=== PATIENT | female | born 1985 | race Caucasian/White ===

== ENCOUNTER 2017-03-16 03:45 | Emergency (ER) | payer OTHER ==
--- NOTE | 2017-03-16 05:27 | ED ORDER SUMMARY ---
..... Patient: CASSI KERN OrderSheet [facility] VisitID: [id number] [place] [address] 31y, F Registration Date/Time: 03/16/2017 ORDER SHEET Weight: 72.5 kg (stated) Allergies: Oranges, Roxicet GENERAL ORDERS: MEDICATION ORDERS: Diazepam PO 10 mg (HIGH ALERT MEDICATION, NOW) (04:20 03/16/2017 Pedro Pablo Kim) (4:34 Pablo R.N.) Motrin PO 800 mg (NOW) (04:20 03/16/2017 Pedro Pablo Kim) (4:35 Pablo De Souza.N.) IV FLUIDS: ORDER SHEET NOTES: [Electronically signed by James Ford Dr. (05:29 03/16/2017)] [Electronically signed by Hiro Stout R.N. (06:59 03/16/2017)] [Electronically locked/signed by Hiro Stout R.N. (06:59 03/16/2017)]
--- NOTE | 2017-03-16 05:27 | ED CLINICAL REPORT ---
Clinical Report - Physicians/Mid Levels [facility] [address] [place] [address] 03/16/2017 3:47 Patient: CASSI KERN Time Seen: 04:06; initial patient contact. Arrived- By private vehicle. Historian- patient. HISTORY OF PRESENT ILLNESS Chief Complaint: HEADACHE. Is still present. This started about 2 days ago. It was gradual in onset. Onset during light activity. It is described as similar to previous headaches and "pain". Located in the frontal and occipital region and has had neck pain. Not located in the facial region. At its maximum, severity described as moderate. When seen in the E.D., severity described as moderate. The patient has had photophobia. No preceding symptoms, blurred vision, associated nausea or vomiting. Similar symptoms previously: Many times. Recent medical care: Not recently seen/assessed. REVIEW OF SYSTEMS No sinus pressure or head injury. All systems otherwise negative, except as recorded above. PAST HISTORY Tension H/A's Migraine H/A's. Medications: Methocarbamol Oral 750 mg, as needed. Allergies: Oranges. Roxicet. SOCIAL HISTORY Never smoker. Occasional alcohol use. No drug use. ADDITIONAL NOTES The nursing notes have been reviewed. PHYSICAL EXAM Vital Signs: 03/16/2017 03:54 BP: 148/95. HR: 70. RR: 16. O2 saturation: 99%. Temp: 97.1 F. Pain level now: 08/28. Have been reviewed. Hypertensive. Heart rate normal. Respiratory rate normal. Temperature normal. Oxygen saturation normal. Appearance: Alert. No acute distress. Eyes: Photophobia present. Pupils equal, round and reactive to light. Eyes normal inspection. ENT: Pharynx normal. Neck: Moderate muscle spasm of the right and left posterior neck. Neck supple. Mild soft tissue tenderness in the right upper neck area and left upper neck area. No meningeal signs. No vertebral tenderness. No vertebral step-off. CVS: Normal heart rate and rhythm. Heart sounds normal. Respiratory: No respiratory distress. Breath sounds normal. Skin: Skin warm and dry. Normal skin color. No rash. Extremities: No lower extremity edema. Neuro: Oriented X 3. Alert. Mood/affect normal. Speech normal. PROGRESS AND PROCEDURES Course of Care: Motrin 800 mg PO given. Diazepam 10 mg PO given. Physical exam findings are improved. Symptoms much better. Disposition: Discharged home in good and improved condition. Condition: good. CLINICAL IMPRESSION Episodic tension-type headache resistant to treatment. INSTRUCTIONS Do not work today. Your Current Medications: CONTINUE TAKING THE FOLLOWING MEDICATIONS: Methocarbamol Oral : 750 mg, prn. Prescription Medications: Diclofenac 50 mg tablets: take 1 tablet orally every 8 hours as needed for pain or stiffness. Dispense thirty (30). No refill. Follow-up: Follow up with your doctor in about three days. Call for an appointment. Screening today revealed the patient's blood pressure to be in the hypertensive range. The patient should follow up with a primary care provider for blood pressure management. (Electronically signed by James Ford Dr. 03/16/2017 5:29)
--- NOTE | 2017-03-16 05:27 | ED NURSING NOTES ---
Clinical Report - Nurses [facility] [address] [place] [address] 03/16/2017 3:47 Patient: CASSI KERN TRIAGE Triage time 03:54. Acuity: LEVEL 4. Chief Complaint: MIGRAINE HEADACHE. 04:02. --04:02 Ana Rey R.N. 03:54 03/16/17. BP: 148/95 taken on the left arm, via an automated monitor, while lying. HR: 70 (regular, normal rate and strong). RR: 16 (regular, labored and normal). O2 saturation: 99% on room air. Temp: 97.1 F (oral). Pain level now: 08/28. --04:02 Ana Rey R.N. Weight: 72.5 kg stated. Height/Length: 64 inches Per Patient. BMI: 27.5. --03:56 Ana Rey R.N. Medications Methocarbamol Oral 750 mg, as needed. --03:56 Ana Rey R.N. Allergies Oranges. Roxicet. --03:56 Ana Rey R.N. History Arrived by private vehicle. Historian: patient. Accompanied by friend. Primary physician (Dr Disla). This started 11 hours ago. SOCIAL HX: Never smoker. Occasional alcohol use. No drug use. FALL RISK ASSESSMENT: Fall risk assessment completed. No fall risk identified. NUTRITIONAL RISK ASSESSMENT: The nutritional risk assessment revealed no deficiencies. FUNCTIONAL ASSESSMENT: Functional assessment: no impairments noted. LEARNING NEEDS ASSESSMENT: The learning needs assessment revealed no barriers. SKIN INTEGRITY ASSESSMENT: Skin integrity risk assessment completed. No skin integrity risk identified. --04:02 Ana Rey R.N. Interventions ID band on patient. --04:02 Aan Rey R.N. PHYSICAL ASSESSMENT 04:04. Ambulatory to room. GENERAL / NEURO / PSYCH: Alert. Oriented X 4. Appears in no acute distress. Appears in pain. Speech within normal limits. HEENT: No facial asymmetry noted. Pupils equal, round and reactive to light. RESPIRATORY: Respirations not labored. Breath sounds within normal limits. CVS: Capillary refill less than 2 seconds. GI / : Abdomen soft and nontender. SKIN: Skin is warm. --04:04 Ana Rey R.N. NURSING PROGRESS NOTES 04:03. Patient ID band checked for patient name and birthdate: patient confirmed. Clean catch urine collected with return of yellow-colored clear urine; odor is normal. Specimen labeled in the presence of the patient. Two patient identifiers checked. Call light placed in reach. Side rails up x 1. Bed placed in lowest position. Brakes of bed on. --04:03 Ana Rey R.N. 04:30 03/16/2017 Diazepam (Diazepam) PO Tablets 10 mg given. Allergies verified, confirmed 5 rights and sedative warning given. --04:34 Hiro Stout R.N. 04:30 03/16/2017 Motrin PO Tablets 600 mg given. Allergies verified and confirmed 5 rights. --04:35 Hiro Stout R.N. DISPOSITION / DISCHARGE Departure time: 0545. --06:52 Hiro Stout R.N. 05:35 03/16/17. BP: 132/87. HR: 86. RR: 16. O2 saturation: 99% on room air. Temp: 98.2 F (oral). Pain level now: 0/10. --06:57 Hiro Stout R.N. 05:45. Condition at departure: improved. No learning barriers present. Discharge instructions provided and reviewed with the patient. Reviewed medication(s) dosing information (prescription given to pt). Reviewed referral to family practice. Patient verbalized understanding. Written instructions provided in [place]. The patient was discharged by the physician. She was discharged home and accompanied by tape deck installer. She left the Emergency Department ambulatory and via private vehicle. Picker Feeder driving. --06:59 Hiro Stout R.N. Locked/Released at 03/16/2017 6:59 by Hiro Stout R.N.
--- NOTE | 2017-03-16 05:27 | ED NURSING NOTES ---
Clinical Report - Nurses [facility] [address] [place] [address] 03/16/2017 3:47 Patient: CASSI KERN TRIAGE Triage time 03:54. Acuity: LEVEL 4. Chief Complaint: MIGRAINE HEADACHE. 04:02. --04:02 Ana Rey R.N. 03:54 03/16/17. BP: 148/95 taken on the left arm, via an automated monitor, while lying. HR: 70 (regular, normal rate and strong). RR: 16 (regular, labored and normal). O2 saturation: 99% on room air. Temp: 97.1 F (oral). Pain level now: 08/28. --04:02 Ana Rey R.N. Weight: 72.5 kg stated. Height/Length: 64 inches Per Patient. BMI: 27.5. --03:56 Ana Rey R.N. Medications Methocarbamol Oral 750 mg, as needed. --03:56 Ana Rey R.N. Allergies Oranges. Roxicet. --03:56 Ana Rey R.N. History Arrived by private vehicle. Historian: patient. Accompanied by friend. Primary physician (Dr Disla). This started 11 hours ago. SOCIAL HX: Never smoker. Occasional alcohol use. No drug use. FALL RISK ASSESSMENT: Fall risk assessment completed. No fall risk identified. NUTRITIONAL RISK ASSESSMENT: The nutritional risk assessment revealed no deficiencies. FUNCTIONAL ASSESSMENT: Functional assessment: no impairments noted. LEARNING NEEDS ASSESSMENT: The learning needs assessment revealed no barriers. SKIN INTEGRITY ASSESSMENT: Skin integrity risk assessment completed. No skin integrity risk identified. --04:02 Ana Rey R.N. Interventions ID band on patient. --04:02 Ana Rey R.N. PHYSICAL ASSESSMENT 04:04. Ambulatory to room. GENERAL / NEURO / PSYCH: Alert. Oriented X 4. Appears in no acute distress. Appears in pain. Speech within normal limits. HEENT: No facial asymmetry noted. Pupils equal, round and reactive to light. RESPIRATORY: Respirations not labored. Breath sounds within normal limits. CVS: Capillary refill less than 2 seconds. GI / : Abdomen soft and nontender. SKIN: Skin is warm. --04:04 Ana Rey R.N. NURSING PROGRESS NOTES 04:03. Patient ID band checked for patient name and birthdate: patient confirmed. Clean catch urine collected with return of yellow-colored clear urine; odor is normal. Specimen labeled in the presence of the patient. Two patient identifiers checked. Call light placed in reach. Side rails up x 1. Bed placed in lowest position. Brakes of bed on. --04:03 Ana Rey R.N. 04:30 03/16/2017 Diazepam (Diazepam) PO Tablets 10 mg given. Allergies verified, confirmed 5 rights and sedative warning given. --04:34 Hiro Stout R.N. 04:30 03/16/2017 Motrin PO Tablets 600 mg given. Allergies verified and confirmed 5 rights. --04:35 Hiro Stout R.N. DISPOSITION / DISCHARGE Departure time: 0545. --06:52 Hiro Stout R.N. 05:35 03/16/17. BP: 132/87. HR: 86. RR: 16. O2 saturation: 99% on room air. Temp: 98.2 F (oral). Pain level now: 0/10. --06:57 Hiro Stout R.N. 05:45. Condition at departure: improved. No learning barriers present. Discharge instructions provided and reviewed with the patient. Reviewed medication(s) dosing information (prescription given to pt). Reviewed referral to family practice. Patient verbalized understanding. Written instructions provided in [place]. The patient was discharged by the physician. She was discharged home and accompanied by wooden tank erector. She left the Emergency Department ambulatory and via private vehicle. Garnett Machine Operator driving. --06:59 Hiro Stout R.N. Locked/Released at 03/16/2017 6:59 by Hiro Stout R.N.
--- NOTE | 2017-03-16 05:27 | ED CLINICAL REPORT ---
Clinical Report - Physicians/Mid Levels [facility] [address] [place] [address] 03/16/2017 3:47 Patient: CASSI KERN Time Seen: 04:06; initial patient contact. Arrived- By private vehicle. Historian- patient. HISTORY OF PRESENT ILLNESS Chief Complaint: HEADACHE. Is still present. This started about 2 days ago. It was gradual in onset. Onset during light activity. It is described as similar to previous headaches and "pain". Located in the frontal and occipital region and has had neck pain. Not located in the facial region. At its maximum, severity described as moderate. When seen in the E.D., severity described as moderate. The patient has had photophobia. No preceding symptoms, blurred vision, associated nausea or vomiting. Similar symptoms previously: Many times. Recent medical care: Not recently seen/assessed. REVIEW OF SYSTEMS No sinus pressure or head injury. All systems otherwise negative, except as recorded above. PAST HISTORY Tension H/A's Migraine H/A's. Medications: Methocarbamol Oral 750 mg, as needed. Allergies: Oranges. Roxicet. SOCIAL HISTORY Never smoker. Occasional alcohol use. No drug use. ADDITIONAL NOTES The nursing notes have been reviewed. PHYSICAL EXAM Vital Signs: 03/16/2017 03:54 BP: 148/95. HR: 70. RR: 16. O2 saturation: 99%. Temp: 97.1 F. Pain level now: 08/28. Have been reviewed. Hypertensive. Heart rate normal. Respiratory rate normal. Temperature normal. Oxygen saturation normal. Appearance: Alert. No acute distress. Eyes: Photophobia present. Pupils equal, round and reactive to light. Eyes normal inspection. ENT: Pharynx normal. Neck: Moderate muscle spasm of the right and left posterior neck. Neck supple. Mild soft tissue tenderness in the right upper neck area and left upper neck area. No meningeal signs. No vertebral tenderness. No vertebral step-off. CVS: Normal heart rate and rhythm. Heart sounds normal. Respiratory: No respiratory distress. Breath sounds normal. Skin: Skin warm and dry. Normal skin color. No rash. Extremities: No lower extremity edema. Neuro: Oriented X 3. Alert. Mood/affect normal. Speech normal. PROGRESS AND PROCEDURES Course of Care: Motrin 800 mg PO given. Diazepam 10 mg PO given. Physical exam findings are improved. Symptoms much better. Disposition: Discharged home in good and improved condition. Condition: good. CLINICAL IMPRESSION Episodic tension-type headache resistant to treatment. INSTRUCTIONS Do not work today. Your Current Medications: CONTINUE TAKING THE FOLLOWING MEDICATIONS: Methocarbamol Oral : 750 mg, prn. Prescription Medications: Diclofenac 50 mg tablets: take 1 tablet orally every 8 hours as needed for pain or stiffness. Dispense thirty (30). No refill. Follow-up: Follow up with your doctor in about three days. Call for an appointment. Screening today revealed the patient's blood pressure to be in the hypertensive range. The patient should follow up with a primary care provider for blood pressure management. (Electronically signed by James Ford Dr. 03/16/2017 5:29)
--- NOTE | 2017-03-16 05:27 | ED ORDER SUMMARY ---
..... Patient: CASSI KERN OrderSheet [facility] VisitID: [id number] [place] [address] 31y, F Registration Date/Time: 03/16/2017 ORDER SHEET Weight: 72.5 kg (stated) Allergies: Oranges, Roxicet GENERAL ORDERS: MEDICATION ORDERS: Diazepam PO 10 mg (HIGH ALERT MEDICATION, NOW) (04:20 03/16/2017 Pedro Pablo Kim) (4:34 Pablo R.N.) Motrin PO 800 mg (NOW) (04:20 03/16/2017 Pedro Pablo Kim) (4:35 Pablo De Souza.N.) IV FLUIDS: ORDER SHEET NOTES: [Electronically signed by James Ford Dr. (05:29 03/16/2017)] [Electronically signed by Hiro Stout R.N. (06:59 03/16/2017)] [Electronically locked/signed by Hiro Stout R.N. (06:59 03/16/2017)]
--- NOTE | 2017-03-16 07:00 | ED MAR SUMMARY ---
..... Medication Administration Record [facility] [address] [place] [address] Patient: CASSI KERN Visit ID: [id number] 31y, F Weight: 72.5 kg Height/Length: 64 in BMI: 27.5 ALLERGIES: Oranges, Roxicet Given 04:03/16/2017 Hiro Stout, R.N. Medication Administered: DIAZEPAM [PO] (DIAZEPAM), Dose: 10 mg Tablets PO. Medication Ordered: Diazepam PO 10 mg (HIGH ALERT MEDICATION, NOW). Given 04:03/16/2017 Hiro Stout, R.N. Medication Administered: MOTRIN [PO], Dose: 600 mg Tablets PO. Medication Ordered: Motrin PO 800 mg (NOW).
--- NOTE | 2017-03-16 07:00 | ED MED RECONCILIATION SUMMARY ---
Patient: CASSI KERN Medication Reconciliation Report [facility] VisitID: [id number] [place] [address] 31y, F Registration Date/Time: 03/16/2017 Weight: 72.5 kg Height/Length: 64 in. BMI: 27.5 ALLERGIES: Oranges, Roxicet The patient's Home Medications are listed below: CONTINUE TAKING THE FOLLOWING MEDICATIONS: Methocarbamol Oral 750 mg The source(s) of the original Home Medication information: Not obtained. The following Medications were given to the patient in the Emergency Department: Diazepam [PO] PO 10 mg, administered: 03/16/2017 4:30:00 AM Motrin [PO] PO 600 mg, administered: 03/16/2017 4:30:00 AM The following Medications were prescribed to the patient: Diclofenac 50 mg tablets: take 1 tablet orally every 8 hours as needed for pain or stiffness. Dispense thirty (30). No refill. -- James Ford Dr.
--- NOTE | 2017-03-16 07:00 | ED MAR SUMMARY ---
..... Medication Administration Record [facility] [address] [place] [address] Patient: CASSI KERN Visit ID: [id number] 31y, F Weight: 72.5 kg Height/Length: 64 in BMI: 27.5 ALLERGIES: Oranges, Roxicet Given 04:03/16/2017 Hiro Stout, R.N. Medication Administered: DIAZEPAM [PO] (DIAZEPAM), Dose: 10 mg Tablets PO. Medication Ordered: Diazepam PO 10 mg (HIGH ALERT MEDICATION, NOW). Given 04:03/16/2017 Hiro Stout, R.N. Medication Administered: MOTRIN [PO], Dose: 600 mg Tablets PO. Medication Ordered: Motrin PO 800 mg (NOW).
--- NOTE | 2017-03-16 07:00 | ED DISCHARGE INSTRUCTIONS ---
Patient: CASSI KERN General Instructions [facility] VisitID: [id number] [place] [address] 31y, F Registration Date/Time: 03/16/2017 Episodic tension-type headache resistant to treatment. INSTRUCTIONS Do not work today. Your Current Medications: CONTINUE TAKING THE FOLLOWING MEDICATIONS: Methocarbamol Oral : 750 mg, prn. Prescription Medications: Diclofenac 50 mg tablets: take 1 tablet orally every 8 hours as needed for pain or stiffness. Dispense thirty (30). No refill. Follow-up: Follow up with your doctor in about three days. Call for an appointment. Screening today revealed the patient's blood pressure to be in the hypertensive range. The patient should follow up with a primary care provider for blood pressure management. ADDITIONAL INFORMATION Tension Headache Muscle Tension Headache (also called "stress headache") is a very common cause of head pain. Under stress, some people tense the muscles of their shoulder, neck and scalp without knowing it. If this lasts long enough, a headache can occur. These headaches can be very painful and last for hours or even days. Home Care: If you were given pain medicine for this headache, do not drive yourself home. Arrange for a ride, instead. When you get home, try to sleep. You should feel much better when you wake up. Heat to the back of your neck may relieve neck spasm. Drink only clear liquids or eat a very light diet to avoid nausea/vomiting until symptoms improve. Preventing Future Headaches Identify the sources of stress in your life. These may not be obvious! Learn new ways to handle your stress, such as regular exercise, biofeedback, self-hypnosis and meditation. For more information about this, consult your doctor or go to a local bookstore and review the many books and tapes on this subject. At the first sign of a tension headache, take time out if possible. Remove yourself from the stressful situation, find a quiet comfortable place to sit or lie down and let yourself relax. Heat and deep massage of the tight areas in the neck and shoulders may help reduce muscle spasm. Medicine, such as ibuprofen (Advil or Motrin) or a prescribed muscle relaxant may be helpful at this point. Follow Up with your doctor if the headache is not better within the next 24 hours. If you have frequent headaches you should discuss a treatment plan with your primary care doctor. Ask if you can have medicine to take at home the next time you get a bad headache. This may avoid the need for a visit to the emergency department in the future. Poorly controlled chronic headaches may require a referral to a neurologist (headache specialist). Get Prompt Medical Attention if any of the following occur: Worsening of your head pain or no improvement within 24 hours Repeated vomiting (unable to keep liquids down) Fever of 100.4F (38C) or higher, or as directed by your healthcare provider Stiff neck Extreme drowsiness, confusion or fainting Dizziness, vertigo (dizziness with spinning sensation) Weakness of an arm or leg or one side of the face Difficulty with speech or vision You have been given the following additional information: Headache, Tension Do not work today. (Electronically signed by James Ford Dr. 03/16/2017 5:29)
--- NOTE | 2017-03-16 07:00 | ED MED RECONCILIATION SUMMARY ---
Patient: CASSI KERN Medication Reconciliation Report [facility] VisitID: [id number] [place] [address] 31y, F Registration Date/Time: 03/16/2017 Weight: 72.5 kg Height/Length: 64 in. BMI: 27.5 ALLERGIES: Oranges, Roxicet The patient's Home Medications are listed below: CONTINUE TAKING THE FOLLOWING MEDICATIONS: Methocarbamol Oral 750 mg The source(s) of the original Home Medication information: Not obtained. The following Medications were given to the patient in the Emergency Department: Diazepam [PO] PO 10 mg, administered: 03/16/2017 4:30:00 AM Motrin [PO] PO 600 mg, administered: 03/16/2017 4:30:00 AM The following Medications were prescribed to the patient: Diclofenac 50 mg tablets: take 1 tablet orally every 8 hours as needed for pain or stiffness. Dispense thirty (30). No refill. -- James Ford Dr.
== END 2017-03-16 05:45 | disposition home or self-care (01) ==
LOC: ED SRH 03:45
DX: G44.211 Episodic tension-type headache, intractable (principal)